=== PATIENT | male | born 1990 | race Caucasian/White ===

== ENCOUNTER 2016-05-29 13:19 | Emergency (ER) | payer SELFPAY ==
[~2016-05-29] VITALS: Ht 185.4 cm; Wt 95.3 kg
[~2016-05-29 13:19] MED LIST: LITH300C2 PO; LORA1TAB PO; RISP0.253 PO
[2016-05-29] MEDS ORDERED: HALOPERIDOL LACTATE INJ 5 MG/ML VIAL IM ONE (13:30)
[2016-05-29] MEDS ORDERED: LORAZEPAM INJ 2 MG/ML VIAL IM ONE (13:30)
[2016-05-29 13:52] LABS: BASOPHILS # (AUTO) 0.1 /CMM (0.0-0.2); BASOPHILS % (AUTO) 0.6 % (0.0-2.0); DIFF TOTAL % 100 %; EOSINOPHILS # (AUTO) 0.2 /CMM (0.0-0.7); HEMATOCRIT 43 % (39-51); HEMOGLOBIN 14.9 g/dL (13.5-17.5); LYMPHOCYTES # (AUTO) 1.9 /CMM (0.8-4.8); MEAN CORPUSCULAR HEMOGLOBIN 30 PG (26.0-33.0); MEAN CORPUSCULAR HGB CONC 34 g/dl (31.0-36.0); MEAN CORPUSCULAR VOLUME 86 fL (80-96); MONOCYTES # (AUTO) 0.6 /CMM (0.1-1.30); MONOCYTES % (AUTO) 5.4 % (2.0-12.0); NEUTROPHILS # (AUTO) 7.7 /CMM (1.8-8.9); PLATELET COUNT (AUTO) 360 /CMM (150-450); RED BLOOD CELL COUNT(AUTO) 5.05 MIL/uL (4.5-6.0); WHITE BLOOD COUNT (AUTO) 10.5 K/uL (4.3-11.0)
[2016-05-29] MEDS ORDERED: LORAZEPAM INJ 2 MG/ML VIAL ONE (14:04)
[2016-05-29] MEDS ORDERED: HALOPERIDOL LACTATE INJ 5 MG/ML VIAL ONE (14:04)
[2016-05-29 14:05] LABS: ANION GAP 14 (5-14); CALCIUM, SERUM 9.3 mg/dL (8.5-10.1); CARBON DIOXIDE 25 mmol/L (21-32); CHLORIDE 105 mmol/L (98-107); CREATININE 1.1 mg/dL (0.6-1.3); GFR 80 mL/min (>60); GLUCOSE 88 mg/dL (74-106); POTASSIUM 3.7 mmol/L (3.5-5.1); SODIUM SERUM 141 mmol/L (136-145); UREA NITROGEN, BLOOD 10 mg/dL (7-18)
[2016-05-29 14:19] LABS: ACETAMINOPHEN 0 ug/ml (10-30); ALANINE AMINOTRANSFERASE 25 U/L (12-78); ALBUMIN 3.7 g/dL (3.4-5.0); ASPARTATE AMINOTRANSFERASE 28 U/L (15-37); BILIRUBIN,DIRECT 0.1 mg/dL (0.0-0.2); BILIRUBIN,TOTAL 0.4 mg/dL (0.2-1.0); INDIRECT BILIRUBIN 0.3 mg/dL (0.0-1.1); SALICYLATE 3.4 mg/dL (2.8-20.0); TOTAL PROTEIN, SERUM 7.2 g/dL (6.4-8.2)
[2016-05-29 21:03] VITALS: BP 113/69
== END 2016-05-29 21:49 | disposition home or self-care (01) ==
LOC: ER 15:31
DX: F29 Unspecified psychosis not due to a substance or known physiological condition (principal); F20.9 Schizophrenia, unspecified; F32.9 Major depressive disorder, single episode, unspecified; F42.9 Obsessive-compulsive disorder, unspecified; F90.9 Attention-deficit hyperactivity disorder, unspecified type; F31.9 Bipolar disorder, unspecified
CPT/HCPCS: 36415; 80048; 80076; 80329; 85025; 96372 ×2; 99284; A4606; G0480 ×2; J1630; J2060; Z7610; G6039-TC

== ENCOUNTER 2016-06-08 10:26 | Emergency (ER) | payer OTHER ==
[~2016-06-08] VITALS: Ht 185.4 cm; Wt 88.5 kg
[2016-06-08] MEDS ORDERED: HALOPERIDOL LACTATE INJ 5 MG/ML VIAL ONE (10:36)
[2016-06-08] MEDS ORDERED: LORAZEPAM INJ 2 MG/ML VIAL ONE (10:36)
[2016-06-08 10:46] LABS: BASOPHILS # (AUTO) 0.1 /CMM (0.0-0.2); BASOPHILS % (AUTO) 1.5 % (0.0-2.0); DIFF TOTAL % 100 %; EOSINOPHILS # (AUTO) 0.1 /CMM (0.0-0.7); EOSINOPHILS % (AUTO) 1.1 % (0.0-6.0); HEMATOCRIT 47 % (39-51); HEMOGLOBIN 16.1 g/dL (13.5-17.5); LYMPHOCYTES # (AUTO) 2.1 /CMM (0.8-4.8); MEAN CORPUSCULAR HEMOGLOBIN 29 PG (26.0-33.0); MEAN CORPUSCULAR HGB CONC 34 g/dl (31.0-36.0); MEAN CORPUSCULAR VOLUME 86 fL (80-96); MONOCYTES % (AUTO) 10.7 % (2.0-12.0); NEUTROPHILS # (AUTO) 6.3 /CMM (1.8-8.9); NEUTROPHILS % (AUTO) 64.7 % (43.0-81.0); PLATELET COUNT (AUTO) 345 /CMM (150-450); WHITE BLOOD COUNT (AUTO) 9.6 K/uL (4.3-11.0)
[2016-06-08 10:56] LABS: KETONES,URINE Negative (NEGATIVE); LEUKOCYTE ESTERASE ,URINE Negative (NEGATIVE)
[2016-06-08 10:58] LABS: ADD UA MICROSCOPIC YES
[2016-06-08 10:58] LABS: CALCIUM, SERUM 9.7 mg/dL (8.5-10.1); CREATININE 1.4 mg/dL (0.6-1.3); POTASSIUM 4.2 mmol/L (3.5-5.1)
[2016-06-08] MEDS ORDERED: HALOPERIDOL LACTATE INJ 5 MG/ML VIAL IM ONE (11:00)
[2016-06-08] MEDS ORDERED: LORAZEPAM INJ 2 MG/ML VIAL IM ONE (11:00)
[2016-06-08] MEDS ORDERED: IV NS 0.9% 1,000 ML BAG IV ONE ×2 (11:00→12:30)
[2016-06-08 11:06] LABS: ALBUMIN 4.5 g/dL (3.4-5.0); BILIRUBIN,TOTAL 0.6 mg/dL (0.2-1.0); TOTAL PROTEIN, SERUM 8.2 g/dL (6.4-8.2)
[2016-06-08 11:19] LABS: ADD URINE CULTURE NO; RBC,URINE 0-2 /HPF (0-2); WBC,URINE 0-2 /HPF (0-3)
[2016-06-08 11:25] LABS: PHENCYCLIDINE SCREEN,URINE NEGATIVE (NEGATIVE)
[2016-06-08 11:27] LABS: CANNABINOID, URINE POSITIVE (NEGATIVE)
[2016-06-08] MEDS ORDERED: IV NS 0.9% 1,000 ML ONE (12:34)
[2016-06-08] MEDS ORDERED: IV SET PRIMARY 1 EA INFUS.SET MC ONE (12:34)
[2016-06-08 13:21] LABS: CREATINE KINASE MB 4.5 ng/mL (0-3.6)
[2016-06-08 16:17] VITALS: BP 132/57
== END 2016-06-08 16:19 | disposition home or self-care (01) ==
LOC: EDBD → MERGE 10:30 → ER 10:30
DX: R41.82 Altered mental status, unspecified (principal); F19.10 Other psychoactive substance abuse, uncomplicated; R00.0 Tachycardia, unspecified; M62.82 Rhabdomyolysis; N28.9 Disorder of kidney and ureter, unspecified
CPT/HCPCS: 36415; 80053; 80305; 81001; 82550; 82553; 82962; 85025; 96360; 96372 ×2; 99284; A4606; G0480; J1630; J2060; J7030; Z7610; 81000-TC; G6039-TC

== ENCOUNTER 2017-06-14 18:39 | Inpatient (IN) | payer OTHER ==
[~2017-06-14] VITALS: Ht 188 cm; Wt 108.9 kg
--- NOTE | 2017-06-14 18:45 | NUR ---
[id number]: BEHAVIORAL, PSYCHOTIC. PATIENT IS ALTERED, BEHAVING ERRATIC. BREATHING EVEN AND UNLABORED. DIAPHORETIC. NO SOB, NAD. PATIENT IS TACHYCARDIC, ASSISTED TO BED, CONNECTED TO VITALS MONITOR. SAFETY AND COMFORT MEASURES IN PLACE. AWAITING MD ORDERS.
[2017-06-14] MEDS ORDERED: OLANZAPINE 10 MG VIAL IM ONE ×3 (18:50→23:00)
[2017-06-14] MEDS ORDERED: diphenhydrAMINE HCL 50 MG/ML VIAL ONE (18:50)
[2017-06-14] MEDS ORDERED: LORAZEPAM INJ 2 MG/ML VIAL ONE ×2 (18:51→20:09)
--- NOTE | 2017-06-14 18:57 | NUR ---
PATIENT MEDICATED PER MD ORDERS.
[2017-06-14] MEDS ORDERED: diphenhydrAMINE HCL 50 MG/ML VIAL IM ONE (19:00)
[2017-06-14] MEDS ORDERED: LORAZEPAM INJ 2 MG/ML VIAL IM ONE (19:00)
[2017-06-14 19:06] LABS: BASOPHILS # (AUTO) 0.5 /CMM (0.0-0.2); BASOPHILS % (AUTO) 2.7 % (0.0-2.0); EOSINOPHILS # (AUTO) 0.1 /CMM (0.0-0.7); EOSINOPHILS % (AUTO) 0.3 % (0.0-6.0); HEMATOCRIT 48 % (39-51); HEMOGLOBIN 17.1 g/dL (13.5-17.5); LYMPHOCYTES % (AUTO) 11.4 % (20.0-44.0); MEAN CORPUSCULAR HEMOGLOBIN 31 PG (26.0-33.0); MEAN CORPUSCULAR HGB CONC 36 g/dl (31.0-36.0); MEAN CORPUSCULAR VOLUME 87 fL (80-96); MONOCYTES # (AUTO) 1.8 /CMM (0.1-1.30); MONOCYTES % (AUTO) 10.1 % (2.0-12.0); NEUTROPHILS # (AUTO) 13.6 /CMM (1.8-8.9); NEUTROPHILS % (AUTO) 75.5 % (43.0-81.0); PLATELET COUNT (AUTO) 316 /CMM (150-450); RDW COEFFICIENT OF VARIATION 11.7 (11.5-15.0); RED BLOOD CELL COUNT(AUTO) 5.48 MIL/uL (4.5-6.0)
--- NOTE | 2017-06-14 19:14 | NUR ---
REPORT GIVEN TO CARTER JACKSON FOR SAPPHIRE.
[2017-06-14 19:16] LABS: CALCIUM, SERUM 9.8 mg/dL (8.5-10.1); CARBON DIOXIDE 25 mmol/L (21-32); CHLORIDE 97 mmol/L (98-107); CREATININE 1.5 mg/dL (0.6-1.3); GLUCOSE 94 mg/dL (74-106); POTASSIUM 4.4 mmol/L (3.5-5.1); SODIUM SERUM 133 mmol/L (136-145); UREA NITROGEN, BLOOD 17 mg/dL (7-18)
--- NOTE | 2017-06-14 19:16 | NUR ---
REPORT RECEIVED FROM MANUEL SAXENA FOR SAPPHIRE.
[2017-06-14 19:22] LABS: ALANINE AMINOTRANSFERASE 63 U/L (12-78); ALBUMIN 4.4 g/dL (3.4-5.0); ALCOHOL, BLOOD < 3 mg/dL (0-0); ALKALINE PHOSPHATASE 110 U/L (46-116); ASPARTATE AMINOTRANSFERASE 226 U/L (15-37); BILIRUBIN,DIRECT 0.2 mg/dL (0.0-0.2); BILIRUBIN,TOTAL 0.9 mg/dL (0.2-1.0); TOTAL PROTEIN, SERUM 8.5 g/dL (6.4-8.2)
[2017-06-14] MEDS ORDERED: LORAZEPAM INJ 2 MG/ML VIAL IV ONE (20:00)
--- NOTE | 2017-06-14 20:16 | NUR ---
PT RESTING QUIETLY, COOPERATIVE. AROUSES EASILY TO VOICE. VSS.
[2017-06-14] MEDS ORDERED: IV NS 0.9% 1,000 ML BAG IV ONE (21:00)
[2017-06-14 21:11] LABS: CREATINE KINASE MB 33.3 ng/mL (0-3.6)
--- NOTE | 2017-06-14 21:13 | NUR ---
18G IV X 1 ATTEMPT TO R HAND USING ASEPTIC TECH, IV FLUSHES EASILY WITH NS. NO S/S INFILTRATION NOTED.
--- NOTE | 2017-06-14 21:27 | NUR ---
MS 327-2
--- NOTE | 2017-06-14 21:38 | NUR ---
ENDORSED TO MANUEL VOGEL FOR SAPPHIRE ON MS.
--- NOTE | 2017-06-14 21:41 | NUR ---
URINE SPECIMEN OBTAINED AND SENT TO THE LAB.
[2017-06-14 21:52] LABS: APPEARANCE,URINE CLEAR (CLEAR); BILIRUBIN,URINE 1+ (NEGATIVE); BLOOD, URINE NEGATIVE Ery/uL (NEGATIVE); COLOR,URINE AMBER (YELLOW); KETONES,URINE 2+ (NEGATIVE); LEUKOCYTE ESTERASE ,URINE NEGATIVE (NEGATIVE); NITRITE, URINE NEGATIVE (NEGATIVE); PROTEIN,URINE 1+ mg/dl (NEGATIVE); UGLUCOSE NEGATIVE (NEGATIVE); UROBILINOGEN,URINE 0.2 EU/dL (0.2)
--- NOTE | 2017-06-14 22:17 | NUR ---
PT TRANSPORTED TO THE [facility] VIA STRETCHER WITH EMT, VSS.
[2017-06-14 22:21] LABS: BACTERIA,URINE None seen /HPF (None Seen); RBC,URINE 0-2 /HPF (0-2); SQUAMOUS EPITHELIAL CELL,UR Few /HPF (None Seen); WBC,URINE 0-2 /HPF (0-3)
[2017-06-14 22:30] VITALS: BP 129/77
[2017-06-14] MEDS: LORAZEPAM INJ 2 MG/ML VIAL IV PRN (22:58)
[2017-06-14] MEDS ORDERED: MAGNESIUM HYDROXIDE 30 ML UDC PO PRN (23:00)
[2017-06-14] MEDS ORDERED: MORPHINE SULFATE INJ 2 MG/ML DISP.SYRIN IV PRN (23:00)
[2017-06-14] MEDS ORDERED: ONDANSETRON HCL/PF 4 MG/2 ML VIAL IVP PRN (23:00)
[2017-06-14] MEDS ORDERED: ZOLPIDEM TARTRATE 5 MG TABLET PO PRN (23:00)
[2017-06-14] MEDS ORDERED: HYDROCODONE/APAP 5/325MG 1 EACH TABLET PO PRN (23:00)
[2017-06-14] MEDS ORDERED: Z GUARD REMEDY 2 OZ OINT TP PRN (23:00)
[2017-06-14] MEDS ORDERED: ACETAMINOPHEN 325 MG TABLET PO PRN (23:00)
[2017-06-14] MEDS ORDERED: MAG HYDROX/AL HYDROX/SIMETH 30 ML UDC PO PRN (23:00)
--- NOTE | 2017-06-14 23:00 | NUR ---
RN NOTES RECEIVE PT FROM E.R AT 2220 VIA ALVARO PT IN BED A/O X2, SEVERELY AGITATED, REFUSES SKIN ASSESSMENT, PT KEPT CLEAN AND COMFORTABLE ASSISTED TO BED. SAFETY MEASURES IN PLACE, CALL LIGHT WITHIN REACH, WILL CONTINUE TO MONITOR.
[2017-06-14] MEDS ORDERED: SODIUM BICARBONATE SYR 50 MEQ/50 ML DISP.SYRIN ONE (23:35)
[2017-06-14] MEDS: Sodium Bicarbonate 50 MEQ in IV NS 0.9% 1,000 ML IV PRN (23:42)
--- NOTE | 2017-06-15 | NUR ---
SPOKE TO DR. MANJINDER Vines HOSPITALIST RECEIVE ORDER SOFT WRIST RESTRAINT BILATERAL NOTED AND CARRIED OUT READ BACK AND VERIFIED.
[2017-06-15 00:15] VITALS: BP 133/86
[2017-06-15] MEDS ORDERED: SODIUM BICARBONATE SYR 50 MEQ/50 ML DISP.SYRIN ONE (05:43)
[2017-06-15] MEDS: Sodium Bicarbonate 50 MEQ in IV NS 0.9% 1,000 ML IV PRN ×2 (05:48→13:59)
--- NOTE | 2017-06-15 06:12 | NUR ---
MS RN CLOSING NOTES PT ASLEEP IN BED AND EASILY AWAKEN, HEAD OF BED ELEVATED AT ALL TIMES FOR BETTER LUNG EXPANSION AND GOOD CIRCULATION. TOLERATING ROOM AIR 98% AFEBRILE. PT BILATERAL SOFT WRIST RESTRAINT ON CHECK PER PROTOCOL WITH GOOD CIRCULATION. NOT IN RESPIRATORY DISTRESS, STABLE, NURSING CARE RENDERED. NEEDS ATTENDED AND ANTICIPATED. KEPT CLEAN AND DRY AND COMFORTABLE. ON LOW BED TO ENSURE SAFETY, CALL LIGHT WITHIN REACH, WILL ENDORSE TO THE NEXT SHIFT CONTINUE PLAN OF CARE.
[2017-06-15] MEDS: LORAZEPAM INJ 2 MG/ML VIAL IV PRN (06:27)
[2017-06-15] MEDS ORDERED: MORPHINE SULFATE INJ 4 MG/ML DISP.SYRIN IV PRN (07:30)
--- NOTE | 2017-06-15 07:31 | NUR ---
MS RN OPENING NOTES PT RECEIVED ASLEEP IN BED, EASILY AWAKENS. HOB ELEVATED, PT APPEARS COMFORTABLE WITH NO SIGNS OF PAIN NOTED. SITTER PROVIDED FOR 1:1 CLOSE SUPERVISION. PT WITH B/L SOFT WRIST RESTRAINTS ON, NO SKIN BREAKDOWN NOTED WITH GOOD CIRCULATION. ON ROOM AIR, BREATHING EVEN AND UNLABORED. IV ACCESS ON RFA INTACT AND PATENT WITH IVF OF NS WITH NS 50 MEQ NA BICARP @ 150 ML/HR INFUSING WELL, NO SIGNS OF INFILTRATION NOTED. BED LOW AND IN LOCKED POSITION WITH SIDE-RAILS UP APPROPRIATE. CALL LIGHT WITHIN REACH. WILL CONTINUE TO MONITOR ACCORDINGLY.
[2017-06-15 08:00] VITALS: BP 106/58
[2017-06-15] MEDS ORDERED: ENOXAPARIN SODIUM 40 MG/0.4 ML DISP.SYRIN SQ SCH (09:00)
[2017-06-15 11:21] LABS: BASOPHILS # (AUTO) 0.1 /CMM (0.0-0.2); BASOPHILS % (AUTO) 0.6 % (0.0-2.0); EOSINOPHILS # (AUTO) 0.2 /CMM (0.0-0.7); HEMATOCRIT 39 % (39-51); HEMOGLOBIN 13.7 g/dL (13.5-17.5); LYMPHOCYTES # (AUTO) 1.5 /CMM (0.8-4.8); LYMPHOCYTES % (AUTO) 14.8 % (20.0-44.0); MEAN CORPUSCULAR HEMOGLOBIN 31 PG (26.0-33.0); MEAN CORPUSCULAR HGB CONC 36 g/dl (31.0-36.0); MEAN CORPUSCULAR VOLUME 88 fL (80-96); MONOCYTES # (AUTO) 0.8 /CMM (0.1-1.30); MONOCYTES % (AUTO) 7.5 % (2.0-12.0); NEUTROPHILS # (AUTO) 7.7 /CMM (1.8-8.9); NEUTROPHILS % (AUTO) 75.1 % (43.0-81.0); PLATELET COUNT (AUTO) 220 /CMM (150-450); RDW COEFFICIENT OF VARIATION 12.8 (11.5-15.0); RED BLOOD CELL COUNT(AUTO) 4.37 MIL/uL (4.5-6.0); WHITE BLOOD COUNT (AUTO) 10.3 K/uL (4.3-11.0)
--- NOTE | 2017-06-15 11:26 | NUR ---
RN NOTES PATIENT IS SMOKER, INFORMED DR REED IF PT CAN GO OUT TO SMOKE WITH STAFF SUPERVISION AND SAID OK. SMOKING CONSENT SIGNED BY PT AND FILED ON CHART.
[2017-06-15 11:42] LABS: CALCIUM, SERUM 7.8 mg/dL (8.5-10.1); CREATININE 1.1 mg/dL (0.6-1.3); PHOSPHORUS 2.3 mg/dL (2.5-4.9); POTASSIUM 3.5 mmol/L (3.5-5.1)
[2017-06-15 13:14] LABS: CREATINE KINASE MB 15.7 ng/mL (0-3.6)
[2017-06-15] MEDS ORDERED: OLANZAPINE 10 MG VIAL IM PRN (13:30)
[2017-06-15] MEDS ORDERED: K PHOS NEUTRAL 250 MG TABLET PO ONE (15:30)
[2017-06-15 16:00] VITALS: BP 112/64
--- NOTE | 2017-06-15 18:15 | NUR ---
RN DISCHARGED NOTES PT DISCHARGED HOME CALMED AND IN STABLE CONDITION. A/O X3, SAME VERBALLY RESPONSIVE. ALL NEEDS ATTENDED WELL. MD CLEARED HIM FOR DISCHARGED. V/S TAKEN AND RECORDED. SKIN ASSESSMENT REFUSED, NO WOUNDS PRESENT VERBALIZED BY PT. BELONGINGS CHECKED, COUNTED AND SIGNED FORM, PT REFUSED ANY VACCINES. HEALTH TEACHINGS GIVEN, EXIT CARE EXPLAINED AND VERBALIZED UNDERSTANDING. PT STATED THAT HE WANTS TO GO TO [facility] AT [address] [place] [id number]. PT LEFT UNIT AMBULATORY AT 1810H ACCOMPANIED BY PRESS PIPE INSPECTOR TO A WAITING TAXI IN FRONT OF THE LOBBY. MD AND CHARGE NURSE AWARE OF DISCHARGE.
--- NOTE | 2017-06-17 16:13 | NUR ---
Strap Setter consult was from Dr. Summers in regards to substance abuse. SW went to assess patient and provide resources however, patient was already discharged. 06/15/17.
== END 2017-06-15 18:10 | disposition home or self-care (01) | DRG 469 ==
LOC: ER 18:48 → MED 22:01
PROVIDERS: ADMIT Internal Medicine; ATTEND Internal Medicine
DX: N17.9 Acute kidney failure, unspecified (principal); G93.40 Encephalopathy, unspecified; M62.82 Rhabdomyolysis; E87.1 Hypo-osmolality and hyponatremia; E86.0 Dehydration; D72.829 Elevated white blood cell count, unspecified; F20.9 Schizophrenia, unspecified; Z59.0 Homelessness; R74.0 Nonspecific elevation of levels of transaminase and lactic acid dehydrogenase [LDH]; F19.10 Other psychoactive substance abuse, uncomplicated
CPT/HCPCS: 36415; 80048-TC; 80076-TC; 80305; 81000-TC; 82550-TC; 82553-TC; 83735-TC; 84100-TC; 85025-TC; 87081-TC; A4606; G0480; J1200; J1650; J2060; J2270; J3490; J7030; Z7610

== ENCOUNTER 2017-06-19 18:54 | Emergency (ER) | payer OTHER ==
[~2017-06-19] VITALS: Ht 190.5 cm; Wt 114.3 kg
--- NOTE | 2017-06-19 19:00 | NUR ---
27 YO MALE BB RA FROM [employer]. PER EMS, PATIENT WAS FOUND IN FRONT OF [employer], YELLING AND ACTING BAZZARE. [facility] TRANSPORTED PT TO [facility] ED. PATIENT DENIES AN SOB, N,V,CP OR ANY OTHER MEDICAL COMPLAINTS. PATIENT IS ALERTY AND ORIENTED X 3, PATIENT SEEMS AGGITATED. MEDICATED PT ORDERED BY MD ALDANA. WILL CONTINUE TO MONITOR
[2017-06-19] MEDS ORDERED: HALOPERIDOL LACTATE INJ 5 MG/ML VIAL ONE ×2 (19:04→19:42)
[2017-06-19] MEDS ORDERED: diphenhydrAMINE HCL 50 MG/ML VIAL ONE (19:04)
[2017-06-19] MEDS ORDERED: LORAZEPAM INJ 2 MG/ML VIAL ONE ×2 (19:04→19:43)
[2017-06-19] MEDS ORDERED: LORAZEPAM INJ 2 MG/ML VIAL IM ONE ×2 (19:30→20:00)
[2017-06-19] MEDS ORDERED: diphenhydrAMINE HCL 50 MG/ML VIAL IM ONE (19:30)
[2017-06-19] MEDS ORDERED: HALOPERIDOL LACTATE INJ 5 MG/ML VIAL IM ONE ×2 (19:30→20:00)
[2017-06-19 20:10] LABS: BASOPHILS # (AUTO) 0.2 /CMM (0.0-0.2); BASOPHILS % (AUTO) 2.1 % (0.0-2.0); EOSINOPHILS # (AUTO) 0.2 /CMM (0.0-0.7); EOSINOPHILS % (AUTO) 2.2 % (0.0-6.0); HEMATOCRIT 43 % (39-51); HEMOGLOBIN 14.9 g/dL (13.5-17.5); LYMPHOCYTES # (AUTO) 1.5 /CMM (0.8-4.8); MEAN CORPUSCULAR HEMOGLOBIN 30 PG (26.0-33.0); MEAN CORPUSCULAR HGB CONC 35 g/dl (31.0-36.0); MEAN CORPUSCULAR VOLUME 88 fL (80-96); MONOCYTES # (AUTO) 0.8 /CMM (0.1-1.30); MONOCYTES % (AUTO) 7.8 % (2.0-12.0); NEUTROPHILS # (AUTO) 7.7 /CMM (1.8-8.9); NEUTROPHILS % (AUTO) 73.9 % (43.0-81.0); PLATELET COUNT (AUTO) 287 /CMM (150-450); RDW COEFFICIENT OF VARIATION 11.7 (11.5-15.0); RED BLOOD CELL COUNT(AUTO) 4.91 MIL/uL (4.5-6.0); WHITE BLOOD COUNT (AUTO) 10.4 K/uL (4.3-11.0)
[2017-06-19 20:19] LABS: CARBON DIOXIDE 22 mmol/L (21-32); CHLORIDE 102 mmol/L (98-107); CREATININE 1.1 mg/dL (0.6-1.3); GLUCOSE 96 mg/dL (74-106); POTASSIUM 3.5 mmol/L (3.5-5.1); SODIUM SERUM 137 mmol/L (136-145); UREA NITROGEN, BLOOD 12 mg/dL (7-18)
[2017-06-19 20:25] LABS: ALANINE AMINOTRANSFERASE 56 U/L (12-78); ALBUMIN 3.7 g/dL (3.4-5.0); ALCOHOL, BLOOD < 3 mg/dL (0-0); ALKALINE PHOSPHATASE 75 U/L (46-116); ASPARTATE AMINOTRANSFERASE 83 U/L (15-37); BILIRUBIN,DIRECT 0.2 mg/dL (0.0-0.2); BILIRUBIN,TOTAL 0.6 mg/dL (0.2-1.0); TOTAL PROTEIN, SERUM 7.5 g/dL (6.4-8.2)
[2017-06-19 20:26] LABS: ACETAMINOPHEN 0 ug/ml (10-30); SALICYLATE 2.6 mg/dL (2.8-20.0)
--- NOTE | 2017-06-19 20:31 | NUR ---
PATIENT RESTING IN ER BED
[2017-06-19 21:00] LABS: APPEARANCE,URINE Slightly Cloudy (CLEAR); BILIRUBIN,URINE MODERATE (NEGATIVE); BLOOD, URINE Negative Ery/uL (NEGATIVE); COLOR,URINE Dark (YELLOW); KETONES,URINE 15 (NEGATIVE); LEUKOCYTE ESTERASE ,URINE Negative (NEGATIVE); NITRITE, URINE Negative (NEGATIVE); PROTEIN,URINE 30 mg/dl (NEGATIVE); UGLUCOSE Negative (NEGATIVE); UROBILINOGEN,URINE 0.2 EU/dL (0.2)
[2017-06-19] MEDS ORDERED: IV NS 0.9% 1,000 ML BAG IV ONE (21:30)
[2017-06-19 22:08] LABS: BACTERIA,URINE Rare /HPF (None Seen); MUCUS,URINE Many /LPF (None Seen); RBC,URINE 0-2 /HPF (0-2); SQUAMOUS EPITHELIAL CELL,UR Few /HPF (None Seen); URINE AMORPHOUS URATE Few /HPF (None Seen)
--- NOTE | 2017-06-19 23:56 | NUR ---
PATIENT RESTING IN ER BED, NO DISTRESS NOTED, SKIN WARM AND DRY. PATIENT IS ON PROPERTY AND CASUALTY INSURANCE AGENT. REPORT WAS GIVEN TO JULITA JACKSON FOR SAPPHIRE
--- NOTE | 2017-06-20 00:49 | NUR ---
RESTING WITH EYES CLOSED BUT AROUSABLE. NO S/S FO DISTRESS NOTED. RESP EVEN AND UNLABORED. ON MONITOR.
--- NOTE | 2017-06-20 01:55 | NUR ---
LYING SUPINE WITH NO S/S OF DISTRESS. RESP EVEN AND UNLABORED. STILL MONITORED.
--- NOTE | 2017-06-20 02:54 | NUR ---
LYING LT SIDE WITH HOB ELEVATED. NAD NOTED. RESP EVEN AND UNLABORED. ON MONITOR.
--- NOTE | 2017-06-20 03:54 | NUR ---
LYING SUPINE. AROUSABLE BY VOICE. NO DISTRESS NOTED. RESP EVEN AND UNLABORED.
--- NOTE | 2017-06-20 05:10 | NUR ---
PT AWAKE AND ALERT. STEADY GAIT NOTED DURING AMBULATION. PT ASKED IF HE IS HAVING ANY SI OR HI THOUGHTS. PT DENIES SI, HI. MADE AWARE
[2017-06-20 05:13] VITALS: BP 124/76
--- NOTE | 2017-06-20 05:16 | NUR ---
Patient discharged to home in stable condition. Written and verbal after care instructions given. Patient verbalizes understanding of instruction.IV removed. Catheter intact and site benign. Pressure and 4x4 applied to site. No bleeding noted. VSS upon discharge.
== END 2017-06-20 05:15 | disposition home or self-care (01) ==
LOC: ER 18:55
DX: F20.9 Schizophrenia, unspecified (principal); F15.10 Other stimulant abuse, uncomplicated; F12.10 Cannabis abuse, uncomplicated; F31.9 Bipolar disorder, unspecified; M62.82 Rhabdomyolysis; Z59.0 Homelessness
CPT/HCPCS: 36415; 80048; 80076; 80305; 80329; 81001; 82550; 82553; 85025; 96360; 96372 ×5; 99284; A4606; G0480 ×2; J1200; J1630 ×2; J2060 ×2; J7030; 81000-TC

== ENCOUNTER 2018-06-25 06:24 | Emergency (ER) | payer MEDICAID, OTHER ==
[~2018-06-25] VITALS: Ht 177.8 cm; Wt 98.0 kg
[2018-06-25] MEDS ORDERED: OLANZAPINE 10 MG VIAL IM ONE ×2 (06:37→08:00)
[2018-06-25] MEDS ORDERED: LORAZEPAM INJ 2 MG/ML VIAL ONE ×4 (06:37→17:19)
--- NOTE | 2018-06-25 06:40 | NUR ---
PT BIBRA, FOUND IN PARKING LOT. BYSTANDER CALLED FOR BIZARRE BEHAVIOR. PT AGGRESSIVE, THRASHING, AND YELLING AT STAFF. INCOMPREHENDIBLE SENTENCES. NOTED HYPERTENSION AND TACHYCARDIA, AWARE. WILL CONTINUE TO MONITOR
--- NOTE | 2018-06-25 06:40 | NUR ---
MD AT BEDSIDE FOR EVALUATION
[2018-06-25] MEDS: OLANZAPINE 10 MG VIAL IM ONE ×2 (06:45→08:08)
[2018-06-25] MEDS: LORAZEPAM INJ 2 MG/ML VIAL IM ONE ×4 (06:45→17:28)
--- NOTE | 2018-06-25 06:58 | NUR ---
RADIOLOGY AT BEDSIDE FOR CXR. UNABLE TO GO TO CT AT THIS TIME, WILL FOLLOW UP
--- NOTE | 2018-06-25 07:05 | NUR ---
SPECIAL PROCEDURES TECH AT BEDSIDE FOR BLOOD DRAW, UNABLE TO DRAW AT THIS TIME. WILL RETURN LATER.
--- NOTE | 2018-06-25 07:30 | NUR ---
PLACED ON THE MONITOR,SL ESTABLISHED,BLOOD DRAWN FOR LABS, IN & OUT DONE,TOLERATED WELL, SPECIMENS SENT TO LAB.
[2018-06-25 07:47] LABS: BASOPHILS # (AUTO) 0.1 /CMM (0.0-0.2); EOSINOPHILS % (AUTO) 0.6 % (0.0-6.0); HEMATOCRIT 44 % (39-51); HEMOGLOBIN 15.4 g/dL (13.5-17.5); LYMPHOCYTES # (AUTO) 1.7 /CMM (0.8-4.8); LYMPHOCYTES % (AUTO) 15.8 % (20.0-44.0); MEAN CORPUSCULAR HGB CONC 35 g/dl (31.0-36.0); MEAN CORPUSCULAR VOLUME 89 fL (80-96); MONOCYTES # (AUTO) 1.4 /CMM (0.1-1.30); MONOCYTES % (AUTO) 13.1 % (2.0-12.0); NEUTROPHILS # (AUTO) 7.4 /CMM (1.8-8.9); NEUTROPHILS % (AUTO) 69.5 % (43.0-81.0); PLATELET COUNT (AUTO) 279 /CMM (150-450); RED BLOOD CELL COUNT(AUTO) 4.98 MIL/uL (4.5-6.0); WHITE BLOOD COUNT (AUTO) 10.6 K/uL (4.3-11.0)
[2018-06-25 07:52] LABS: APPEARANCE,URINE Clear (CLEAR); BILIRUBIN,URINE Negative (NEGATIVE); BLOOD, URINE Negative Ery/uL (NEGATIVE); COLOR,URINE Yellow (YELLOW); KETONES,URINE Negative (NEGATIVE); LEUKOCYTE ESTERASE ,URINE Negative (NEGATIVE); NITRITE, URINE Negative (NEGATIVE); PH,URINE 5.5 (5.0-8.0); PROTEIN,URINE Negative (NEGATIVE); UGLUCOSE Negative (NEGATIVE); UROBILINOGEN,URINE 0.2 EU/dL (0.2)
[2018-06-25 08:06] LABS: ALANINE AMINOTRANSFERASE 64 U/L (12-78); ALBUMIN 4.1 g/dL (3.4-5.0); ALKALINE PHOSPHATASE 99 U/L (46-116); ASPARTATE AMINOTRANSFERASE 94 U/L (15-37); BILIRUBIN,DIRECT 0.1 mg/dL (0.0-0.2); BILIRUBIN,TOTAL 0.3 mg/dL (0.2-1.0); CALCIUM, SERUM 9.3 mg/dL (8.5-10.1); CARBON DIOXIDE 27 mmol/L (21-32); CHLORIDE 104 mmol/L (98-107); CREATININE 1.1 mg/dL (0.6-1.3); GLUCOSE 83 mg/dL (74-106); POTASSIUM 4.2 mmol/L (3.5-5.1); SODIUM SERUM 141 mmol/L (136-145); TOTAL PROTEIN, SERUM 7.6 g/dL (6.4-8.2); UREA NITROGEN, BLOOD 15 mg/dL (7-18)
[2018-06-25 08:09] LABS: ACETAMINOPHEN 0 ug/ml (10-30); ALCOHOL, BLOOD < 3 mg/dL (0-0); SALICYLATE 2.1 mg/dL (2.8-20.0)
[2018-06-25] MEDS ORDERED: diphenhydrAMINE HCL 50 MG/ML VIAL ONE ×2 (08:26→17:19)
[2018-06-25] MEDS: diphenhydrAMINE HCL 50 MG/ML VIAL IM ONE ×2 (08:38→17:28)
--- NOTE | 2018-06-25 08:46 | NUR ---
PT PULLED OUT HIS PIV,CATH INTACT,PRESSURE DRESSING APPLIED
--- NOTE | 2018-06-25 12:10 | NUR ---
RADIOLOGY ATTEMPTED TO TAKE PT TO CT. PT UNCOOPERATIVE. PROVIDED BLANKETS AND SOCKS FOR COMFORT. MD NOTIFIED.
[2018-06-25] MEDS ORDERED: LORAZEPAM INJ 2 MG/ML VIAL IV ONE (12:30)
--- NOTE | 2018-06-25 12:30 | NUR ---
ATIVAN GIVEN PER MD ORDER. PLACED ON MONITOR FOR OBSERVATION.
--- NOTE | 2018-06-25 12:57 | NUR ---
CALLED RADIOLOGY TO ATTEMPT CT. OFFERED FOOD IF PT COOPERATED FOR CT. PT AGREED.
--- NOTE | 2018-06-25 13:10 | NUR ---
PT TAKEN TO CT VIA ALVARO
--- NOTE | 2018-06-25 13:36 | NUR ---
PT BACK FROM CT. ELISHA WELL
--- NOTE | 2018-06-25 15:51 | NUR ---
PT PROVIDED FOOD TRAY
[2018-06-25] MEDS ORDERED: HALOPERIDOL LACTATE INJ 5 MG/ML VIAL ONE (17:19)
[2018-06-25] MEDS: HALOPERIDOL LACTATE INJ 5 MG/ML VIAL IM ONE (17:28)
--- NOTE | 2018-06-25 17:49 | NUR ---
PT RESTING IN BED, NO COMPLAINTS AT THIS TIME. VSS. WILL CONT TO MONITOR.
--- NOTE | 2018-06-25 21:23 | NUR ---
PT AWAKE. AAOX4. CALM AND COOPERATIVE.
--- NOTE | 2018-06-25 23:06 | NUR ---
Patient is resting comfortably in bed with eyes closed. Easily aroused. VSS
--- NOTE | 2018-06-26 01:50 | NUR ---
BERNARD FROM PET TEAM AT BEDSIDE FOR EVALUATION
--- NOTE | 2018-06-26 02:15 | NUR ---
PT AAOX4. RESPIRATIONS EVEN AND UNLABORED. ABLE TO AMBULATE WITH STEADY GAIT. PROVIDED PT WITH WARM CLOTHES, FOOD, AND TAP CARD FOR TRANSPORTATION. PT REFUSED RESOURCES AND AFTER CARE INSTRUCTIONS. PT MEDICALLY CLEARED FOR DISCHARGE BY ER .
[2018-06-26 02:17] VITALS: BP 137/89
== END 2018-06-26 02:27 | disposition home or self-care (01) ==
LOC: ER 06:28
DX: S05.12XA Contusion of eyeball and orbital tissues, left eye, initial encounter (principal); S05.11XA Contusion of eyeball and orbital tissues, right eye, initial encounter; R41.82 Altered mental status, unspecified; F31.9 Bipolar disorder, unspecified; F15.10 Other stimulant abuse, uncomplicated; F12.10 Cannabis abuse, uncomplicated; F20.9 Schizophrenia, unspecified; F19.10 Other psychoactive substance abuse, uncomplicated; R45.1 Restlessness and agitation; R51 Headache; M54.2 Cervicalgia; Z98.890 Other specified postprocedural states; Z59.0 Homelessness; X58.XXXA Exposure to other specified factors, initial encounter; Y93.89 Activity, other specified; Y92.481 Parking lot as the place of occurrence of the external cause; Y99.8 Other external cause status
CPT/HCPCS: 36415; 70450; 70486; 71045; 72125; 80048; 80076; 80305; 80307; 80329; 81001; 85025; 96372 ×9; 99284; G0480; J1200 ×2; J1630; J2060 ×4; J3490 ×2; 81000-TC

== ENCOUNTER 2018-06-30 14:22 | Emergency (ER) | payer MEDICAID ==
[~2018-06-30] VITALS: Ht 185.4 cm; Wt 121.1 kg
[2018-06-30 15:08] LABS: CALCIUM, SERUM 8.9 mg/dL (8.5-10.1); CARBON DIOXIDE 22 mmol/L (21-32); CHLORIDE 103 mmol/L (98-107); CREATININE 0.9 mg/dL (0.6-1.3); GLUCOSE 103 mg/dL (74-106); POTASSIUM 4.6 mmol/L (3.5-5.1); SODIUM SERUM 138 mmol/L (136-145); UREA NITROGEN, BLOOD 18 mg/dL (7-18)
[2018-06-30] MEDS ORDERED: HALOPERIDOL LACTATE INJ 5 MG/ML VIAL ONE (15:14)
[2018-06-30] MEDS ORDERED: LORAZEPAM INJ 2 MG/ML VIAL ONE (15:14)
[2018-06-30] MEDS ORDERED: diphenhydrAMINE HCL 50 MG/ML VIAL ONE (15:14)
[2018-06-30 15:17] LABS: ALANINE AMINOTRANSFERASE 35 U/L (12-78); ALBUMIN 3.8 g/dL (3.4-5.0); ALKALINE PHOSPHATASE 104 U/L (46-116); ASPARTATE AMINOTRANSFERASE 54 U/L (15-37); BILIRUBIN,TOTAL 0.3 mg/dL (0.2-1.0); SALICYLATE 3.6 mg/dL (2.8-20.0); TOTAL PROTEIN, SERUM 7.3 g/dL (6.4-8.2)
[2018-06-30] MEDS: LORAZEPAM INJ 2 MG/ML VIAL IM ONE ×2 (15:30)
[2018-06-30] MEDS: IV NS 0.9% 1,000 ML BAG IV ONE (15:30)
[2018-06-30] MEDS: HALOPERIDOL LACTATE INJ 5 MG/ML VIAL IM ONE (15:30)
[2018-06-30] MEDS: diphenhydrAMINE HCL 50 MG/ML VIAL IM ONE (15:30)
--- NOTE | 2018-06-30 15:30 | NUR ---
PATIENT WITH 2 ORDERS OF ATIVAN 2MG. VERIFIED WITH MD AND VERBALIZED THAT ONLY 1 DOSE OF ATIVAN 2 MG IS NEEDED. NON-ADMINISTERED OTHER ORDER FOR ATIVAN 2MG. WILL CONTINUE TO MONITOR
[2018-06-30 15:31] LABS: ACETAMINOPHEN 0 ug/ml (10-30); ALCOHOL, BLOOD < 3 mg/dL (0-0)
[2018-06-30 16:07] LABS: BASOPHILS # (AUTO) 0.1 /CMM (0.0-0.2); BASOPHILS % (AUTO) 1.3 % (0.0-2.0); EOSINOPHILS % (AUTO) 3.7 % (0.0-6.0); HEMATOCRIT 40 % (39-51); HEMOGLOBIN 13.7 g/dL (13.5-17.5); LYMPHOCYTES # (AUTO) 1.5 /CMM (0.8-4.8); MEAN CORPUSCULAR HGB CONC 34 g/dl (31.0-36.0); MEAN CORPUSCULAR VOLUME 89 fL (80-96); MONOCYTES # (AUTO) 0.9 /CMM (0.1-1.30); MONOCYTES % (AUTO) 14.8 % (2.0-12.0); NEUTROPHILS # (AUTO) 3.4 /CMM (1.8-8.9); NEUTROPHILS % (AUTO) 55.2 % (43.0-81.0); PLATELET COUNT (AUTO) 248 /CMM (150-450); RED BLOOD CELL COUNT(AUTO) 4.49 MIL/uL (4.5-6.0); WHITE BLOOD COUNT (AUTO) 6.1 K/uL (4.3-11.0)
[2018-06-30 17:57] LABS: APPEARANCE,URINE Clear (CLEAR); BILIRUBIN,URINE Negative (NEGATIVE); BLOOD, URINE Negative Ery/uL (NEGATIVE); COLOR,URINE Yellow (YELLOW); KETONES,URINE 15 (NEGATIVE); LEUKOCYTE ESTERASE ,URINE Negative (NEGATIVE); NITRITE, URINE Negative (NEGATIVE); PH,URINE 5.5 (5.0-8.0); PROTEIN,URINE Negative (NEGATIVE); UGLUCOSE Negative (NEGATIVE); UROBILINOGEN,URINE 0.2 EU/dL (0.2)
--- NOTE | 2018-06-30 21:25 | NUR ---
Pt ok to discharge per dr Woody. Patient discharged to home in stable condition. Written and verbal after care instructions given. Patient verbalizes understanding of instruction.Patient is awake and alert to self, day, and place. pt ambulatory with a steady gait.
[2018-06-30 21:42] VITALS: BP 139/70
== END 2018-06-30 21:43 | disposition home or self-care (01) ==
LOC: ER 14:25
DX: F15.10 Other stimulant abuse, uncomplicated (principal); F12.10 Cannabis abuse, uncomplicated; F19.959 Other psychoactive substance use, unspecified with psychoactive substance-induced psychotic disorder, unspecified; R74.8 Abnormal levels of other serum enzymes; R41.82 Altered mental status, unspecified; F20.9 Schizophrenia, unspecified; F31.9 Bipolar disorder, unspecified; Z98.890 Other specified postprocedural states; Z59.0 Homelessness
CPT/HCPCS: 36415; 80048; 80076; 80305; 80307; 80329; 81001; 82550; 85025; 96360; 96372 ×3; 99284; G0480; J1200; J1630; J2060; J7030; 81000-TC

== ENCOUNTER 2018-07-08 13:57 | Emergency (ER) | payer MEDICAID ==
[~2018-07-08] VITALS: Ht 177.8 cm; Wt 97.5 kg
--- NOTE | 2018-07-08 14:00 | NUR ---
BIB [address] 38 AND [employer] OFFICERS, ACTING BIZARRE, YELLING IN THE MIDDLE OF A STREET. PT EYES OPEN, RR EVEN & UNLABORED, HYPER VERBAL, AGITATED & SCREAMING. PT SEEN & EVAL'D BY JENNIFER FULTON. PT ON HANDCUFFS, [employer] OFFICERS @ BS & WILL CONT TO MONITOR
[2018-07-08] MEDS ORDERED: diphenhydrAMINE HCL 50 MG/ML VIAL ONE (14:14)
[2018-07-08] MEDS ORDERED: LORAZEPAM INJ 2 MG/ML VIAL ONE ×3 (14:15→15:06)
[2018-07-08] MEDS ORDERED: OLANZAPINE 10 MG VIAL IM ONE (14:15)
[2018-07-08 14:16] LABS: BASOPHILS # (AUTO) 0.1 /CMM (0.0-0.2); BASOPHILS % (AUTO) 0.8 % (0.0-2.0); EOSINOPHILS % (AUTO) 0.8 % (0.0-6.0); HEMATOCRIT 51 % (39-51); HEMOGLOBIN 17.9 g/dL (13.5-17.5); LYMPHOCYTES # (AUTO) 1.5 /CMM (0.8-4.8); LYMPHOCYTES % (AUTO) 14.3 % (20.0-44.0); MEAN CORPUSCULAR HGB CONC 35 g/dl (31.0-36.0); MEAN CORPUSCULAR VOLUME 88 fL (80-96); MONOCYTES # (AUTO) 0.6 /CMM (0.1-1.30); MONOCYTES % (AUTO) 5.8 % (2.0-12.0); NEUTROPHILS # (AUTO) 8.4 /CMM (1.8-8.9); NEUTROPHILS % (AUTO) 78.3 % (43.0-81.0); PLATELET COUNT (AUTO) 340 /CMM (150-450); RED BLOOD CELL COUNT(AUTO) 5.79 MIL/uL (4.5-6.0); WHITE BLOOD COUNT (AUTO) 10.8 K/uL (4.3-11.0)
[2018-07-08] MEDS: OLANZAPINE 10 MG VIAL IM ONE (14:20)
[2018-07-08] MEDS: LORAZEPAM INJ 2 MG/ML VIAL IM ONE ×3 (14:20→15:10)
[2018-07-08] MEDS: diphenhydrAMINE HCL 50 MG/ML VIAL IM ONE (14:20)
--- NOTE | 2018-07-08 14:20 | NUR ---
MEDICATED FOR AGITATION PER PA'S ORDER, PT ELISHA WELL.
[2018-07-08 14:21] LABS: CALCIUM, SERUM 9.9 mg/dL (8.5-10.1); CARBON DIOXIDE 24 mmol/L (21-32); CHLORIDE 104 mmol/L (98-107); CREATININE 1.6 mg/dL (0.6-1.3); GLUCOSE 110 mg/dL (74-106); SODIUM SERUM 142 mmol/L (136-145); UREA NITROGEN, BLOOD 22 mg/dL (7-18)
[2018-07-08 14:27] LABS: ALANINE AMINOTRANSFERASE 24 U/L (12-78); ALBUMIN 4.9 g/dL (3.4-5.0); ALKALINE PHOSPHATASE 109 U/L (46-116); ASPARTATE AMINOTRANSFERASE 31 U/L (15-37); BILIRUBIN,DIRECT 0.1 mg/dL (0.0-0.2); BILIRUBIN,TOTAL 0.2 mg/dL (0.2-1.0); TOTAL PROTEIN, SERUM 9.1 g/dL (6.4-8.2)
[2018-07-08 14:28] LABS: ACETAMINOPHEN 0 ug/ml (10-30); ALCOHOL, BLOOD < 3 mg/dL (0-0); SALICYLATE 2.7 mg/dL (2.8-20.0)
[2018-07-08] MEDS ORDERED: HALOPERIDOL LACTATE INJ 5 MG/ML VIAL ONE (14:52)
[2018-07-08] MEDS: HALOPERIDOL LACTATE INJ 5 MG/ML VIAL IM ONE (14:57)
--- NOTE | 2018-07-08 14:58 | NUR ---
PT'S STILL SCREAMING, AGITATED & MEDICATED PER PA'S ORDER. PLACED ON RESEARCH WORKER ENCYCLOPEDIA, NO ECTOPY NOTED. WILL CONT TO MONITOR. ZAYRA OFFICERS @ BS.
--- NOTE | 2018-07-08 15:20 | NUR ---
PLACED ON 4 PTS RESTRAINTS PER PA'S ORDER. MEDICATED PER PA'S ORDER.
--- NOTE | 2018-07-08 15:30 | NUR ---
PT ASLEEP, EASILY AWAKEN BY VERBAL STIMULI. PT CALM, NO AGITATION NOTED. RR EVEN & UNLABORED. 4 PTS RESTRAINTS INTACT WITH GOOD ROM & CMS. WILL CONT TO MONITOR & SITTER @ BS.
--- NOTE | 2018-07-08 16:28 | NUR ---
PT AWAKE, CALM & COOPERATIVE, EATING A MEAL, NAD NOTED @ THIS TIME.
--- NOTE | 2018-07-08 17:30 | NUR ---
Patient is resting comfortably in bed with eyes closed. Easily aroused. VSS
--- NOTE | 2018-07-08 17:56 | NUR ---
CALLED DRAWBENCH OPERATOR YAEL ETA OF 1 HR WAS GIVEN
--- NOTE | 2018-07-08 19:00 | NUR ---
YAEL, BEVEL POLISHER @ BS FOR EVAL.
--- NOTE | 2018-07-08 20:59 | NUR ---
Patient discharged to home in stable condition. Written and verbal after care instructions given. Patient verbalizes understanding of instruction. PT GIVEN HOMELESS PACKET, PT SIGNED WAIVER FORM.
[2018-07-08 21:04] VITALS: BP 132/90
== END 2018-07-08 21:02 | disposition home or self-care (01) ==
LOC: ER 13:59
DX: R45.6 Violent behavior (principal); R41.82 Altered mental status, unspecified; F19.10 Other psychoactive substance abuse, uncomplicated; F20.9 Schizophrenia, unspecified; F31.9 Bipolar disorder, unspecified; R45.1 Restlessness and agitation; Z98.890 Other specified postprocedural states; Z60.2 Problems related to living alone
CPT/HCPCS: 36415; 80048; 80076; 80307; 80329; 85025; 93005; 96372 ×6; 99285; G0480; J1200; J1630; J2060 ×3; J3490

== ENCOUNTER 2019-08-25 00:47 | Emergency (ER) | payer MEDICAID ==
[~2019-08-25] VITALS: Ht 193 cm; Wt 113.4 kg
--- NOTE | 2019-08-25 00:52 | NUR ---
PT BIBEMS C/O SI WITH PLAN TO HANG SELF. PT ADMITS TO SMOKING MARIJUANA. DENIES HI. PT AAOX4, RESPIRATIONS EVEN AND UNLABORED ON RA W/ NAD NOTED. PT CHANGED INTO GOWN, BELONGINGS PLACED TO LOCKER, SUICIDE PRECAUTIONS IMPLEMENTED. SITTER AT BEDSIDE FOR SAFETY
[2019-08-25 01:19] LABS: BASOPHILS # (AUTO) 0.1 /CMM (0.0-0.2); BASOPHILS % (AUTO) 1.5 % (0.0-2.0); HEMATOCRIT 46 % (39-51); HEMOGLOBIN 15.7 g/dL (13.5-17.5); LYMPHOCYTES # (AUTO) 2.4 /CMM (0.8-4.8); LYMPHOCYTES % (AUTO) 34.3 % (20.0-44.0); MEAN CORPUSCULAR HGB CONC 34 g/dl (31.0-36.0); MEAN CORPUSCULAR VOLUME 88 fL (80-96); MONOCYTES # (AUTO) 0.8 /CMM (0.1-1.30); NEUTROPHILS # (AUTO) 3.5 /CMM (1.8-8.9); NEUTROPHILS % (AUTO) 50.2 % (43.0-81.0); PLATELET COUNT (AUTO) 270 /CMM (150-450); RED BLOOD CELL COUNT(AUTO) 5.25 MIL/uL (4.5-6.0); WHITE BLOOD COUNT (AUTO) 6.9 K/uL (4.3-11.0)
[2019-08-25 01:22] LABS: APPEARANCE,URINE Clear (CLEAR); BILIRUBIN,URINE SMALL (NEGATIVE); BLOOD, URINE Negative Ery/uL (NEGATIVE); COLOR,URINE Yellow (YELLOW); KETONES,URINE Trace (NEGATIVE); LEUKOCYTE ESTERASE ,URINE Negative (NEGATIVE); NITRITE, URINE Negative (NEGATIVE); PROTEIN,URINE 30 mg/dl (NEGATIVE); UGLUCOSE Negative (NEGATIVE); UROBILINOGEN,URINE 0.2 EU/dL (0.2)
[2019-08-25 01:27] LABS: CALCIUM, SERUM 9.5 mg/dL (8.5-10.1); CARBON DIOXIDE 26 mmol/L (21-32); CHLORIDE 104 mmol/L (98-107); CREATININE 0.9 mg/dL (0.6-1.3); GLUCOSE 90 mg/dL (74-106); POTASSIUM 3.9 mmol/L (3.5-5.1); SODIUM SERUM 141 mmol/L (136-145); UREA NITROGEN, BLOOD 13 mg/dL (7-18)
[2019-08-25 01:38] LABS: ALANINE AMINOTRANSFERASE 24 U/L (12-78); ALBUMIN 4.2 g/dL (3.4-5.0); ALCOHOL, BLOOD < 3 mg/dL (0-0); ALKALINE PHOSPHATASE 85 U/L (46-116); ASPARTATE AMINOTRANSFERASE 25 U/L (15-37); BILIRUBIN,DIRECT 0.1 mg/dL (0.0-0.2); BILIRUBIN,TOTAL 0.5 mg/dL (0.2-1.0); SALICYLATE 3.6 mg/dL (2.8-20.0); TOTAL PROTEIN, SERUM 7.6 g/dL (6.4-8.2)
[2019-08-25 01:48] LABS: ACETAMINOPHEN 0 ug/ml (10-30)
[2019-08-25 02:04] LABS: BACTERIA,URINE Few /HPF (None Seen); MUCUS,URINE Moderate /LPF (None Seen); RBC,URINE 0-2 /HPF (0-2); SQUAMOUS EPITHELIAL CELL,UR Rare /HPF (None Seen)
--- NOTE | 2019-08-25 03:36 | NUR ---
PT RESTING COMFORTABLY IN BED. VSS. NO ACUTE DISTRESS NOTED. SITTER AT BEDSIDE FOR SAFETY
--- NOTE | 2019-08-25 05:33 | NUR ---
CLINICAL FAXED TO [facility] FOR VOLUNTARY PSYCH ADMISSION.
--- NOTE | 2019-08-25 06:10 | NUR ---
INTAKE RECEIVED CLINICALS, FAXED OVER TO [facility]. AWAITING REVIEW AND CALL BACK
--- NOTE | 2019-08-25 06:57 | NUR ---
REC'V A CALL FROM [facility]. THEY WILL GIVE US A CALL BACK W/ UPDATES AFTER THEIR SHIFT CHANGE AROUND 0730.
--- NOTE | 2019-08-25 10:00 | NUR ---
IVÁN contacted Kennedy at [facility] intake for an update. Per Kennedy,they will accept the pt at [place]. [facility] intake to f/u with MACROECONOMICS PROFESSOR.
--- NOTE | 2019-08-25 13:03 | NUR ---
BATHHOUSE KEEPER followed up with Cherrie at [facility] intake. Per Cherrie, clinicals were sent to nursing printing supervisor at [place] and are being reviewed.
--- NOTE | 2019-08-25 15:02 | NUR ---
GLOBAL REGULATORY AFFAIRS MANAGER contacted Cherrie again at [facility] intake for f/u. Per Cherrie pt has been accepted to [place]. Will call back for report information.
--- NOTE | 2019-08-25 16:24 | NUR ---
YOLANDA PARRISH WILL CALL BACK WITH [facility]
--- NOTE | 2019-08-25 18:04 | NUR ---
TRANSFER INFO: ANGELICA CARRASQUILLO, PT ACCEPTED BY [facility] UNIT 2 RN [phone] [phone]
--- NOTE | 2019-08-25 18:11 | NUR ---
Chi dutta [phone] TRIP [id number]
[2019-08-25 18:44] VITALS: BP 132/77
--- NOTE | 2019-08-25 18:48 | NUR ---
REPORT GIVEN TO MANUEL CREWS OF [facility] FOR SAPPHIRE.
--- NOTE | 2019-08-25 20:42 | NUR ---
PT LEFT VIA AMBULANCE TO [facility].
== END 2019-08-25 20:43 ==
LOC: ER 00:48
DX: R45.851 Suicidal ideations (principal); F15.10 Other stimulant abuse, uncomplicated; F19.10 Other psychoactive substance abuse, uncomplicated; F20.9 Schizophrenia, unspecified; F31.9 Bipolar disorder, unspecified; Z98.890 Other specified postprocedural states; Z60.2 Problems related to living alone; Z79.899 Other long term (current) drug therapy; Z59.0 Homelessness
CPT/HCPCS: 36415; 80048; 80076; 80305; 80307; 80329; 81001; 85025; 87086; 99285; G0480; 81000-TC

== ENCOUNTER 2020-04-04 12:12 | Emergency (ER) | payer MEDICAID, OTHER ==
[~2020-04-04] VITALS: Ht 193 cm; Wt 99.8 kg
[2020-04-04 12:22] VITALS: BP 140/64
--- NOTE | 2020-04-04 12:30 | NUR ---
LEYLA WYLIEW CALLED FOR HOMELESS EVAL
--- NOTE | 2020-04-04 13:20 | NUR ---
PROVIDED WITH PAIR OF NEW SOCKS AND RX
--- NOTE | 2020-04-04 14:13 | NUR ---
Co Founder And Director consult requested by ED welding systems and equipment repairer [facility] as patient is homeless. SW met with the patient. Patient is alert and oriented x4. Patient speech is slurred but able to make needs known. Patient began to provide some information to this SW however SW needed to redirect the patient as SW could not understand. Patient informed this SW that he is currently living in a prison and has been in contact with a social service agency director for long-term placement. Patient reports he will be able to receive a private room within the next month. Patient began to make inappropriate sexual comments and SW had to redirect the patient to complete the assessment. Patient denied government financial assistance. Patient denied suicidal and homicidal ideation. Patient and SW discussed the need for homeless community resources. Patient stated that he did not want it however patient accepted these resources. SW attempted for the patient to sign homeless patient waiver form, however, patient refused and began to make inappropriate comments toward this SW once more. SW completed assessment and exited the area. SW left a copy of homeless patient waiver form in patient's chart and notified ED staff. SW remains available for all needs regarding this patient. SW provided the following resources to the patient: Winter Shelters: Volunteers of [facility] [place] [facility] [address] [phone] ; Volunteers of [facility] [address] [facility], [address] ; [facility]* [facility] ; Volunteers of [facility] [address] [place] [address] ; Volunteers of [facility] [address], [address] ; [facility] [address] [facility] [id number] ; First To Serve* [facility] [address] [facility], [address] ; [facility] [address], [phone] ; [facility] [address] [facility], [address] ; [facility] [address] [place], [address] ; Home At [facility] [place] [address], [place], [address] ; Home at Last [facility] [address] [place], [address] ; Home At Last 2nd [employer] [address] [place] , [address] ; [employer] [facility] [employer] [address] [place] [address] Hygiene: [facility] [employer]: [address] [place] ; [facility] [address] [facility] ; [facility] [address] [facility] . Food Resources: [facility] [employer] at [facility]- [address] [facility] [facility]; Meet Each Need with Dignity ([facility]) [address] [facility]; [facility] [address] [facility]; [facility] [address] [facility] [place] [facility]. Mental Health resources provided: [facility] [address] [place] [address] ; [facility] [address] [facility] [address], [place] [address] ; [facility]inth[facility] Chatman [facility] [address] [place] [address] ; [facility] [address] [place], [place] [id number] Healthcare Clinics: [facility] [address] [facility], [address] [place]. [place] ; [facility] [address] [facility] [address] [place] [address]; [facility] [address] [facility]. [place] [address] [phone] Substance Abuse resources provided included: [facility] Substance Abuse Self-Helpline ([facility]) ; [facility] [address] [facility] [id number] ; [facility] [address] [facility] [address] ; [facility] [address] [facility] [address] ; [facility] [address] [facility] [address] ; [facility] [address] [facility] [address] ; [facility] [address] [facility] [phone] ; [facility] Substance Abuse Helpline([facility])-[facility]
== END 2020-04-04 13:20 | disposition home or self-care (01) ==
LOC: ER 12:14
DX: B35.3 Tinea pedis (principal); F31.9 Bipolar disorder, unspecified; F19.10 Other psychoactive substance abuse, uncomplicated; F20.9 Schizophrenia, unspecified; Z98.890 Other specified postprocedural states; Z60.2 Problems related to living alone; Z79.899 Other long term (current) drug therapy